=== PATIENT | female | born 1950 | race Caucasian/White ===

== ENCOUNTER → 2017-02-23 | Day surgery (SDC) | payer OTHER ==
[~2017-02-23] MED LIST: ASPI81TA11 PO; BUPIVACAINE/EPINEPHRINE 0.5% PF 10 ML VIAL ONE; FISH1000 PO; GLUC500C56 PO; LACTATED RINGER'S 1000 ML INJ 1,000 ML ONE; LIDOCAINE 1%/EPINEPHrine 1:100,000 SOLN 30 ML VIAL ONE; ONDANSETRON HCL 4 MG/2 ML VIAL IV PUSH ONE; PROPOFOL 500 MG/50 ML BTL IV ONE; SERT50 PO; SODIUM BICARBONATE 8.4% INJ 50 ML ONE; SODIUM CHLOR 0.9% 250 ML BAG IV ONE; STOOL SOFTNERS PO; TAB-TAB PO; VANCOMYCIN HCL 1000 MG VIAL ONE; ceFAZolin 2 GM PREMIX 50 ML ONE
--- NOTE | 2017-02-23 19:16 | TN ---
cc: VERONICA NGUYEN M.D. DATE OF SURGERY 02/23/2017 PREOPERATIVE DIAGNOSES 1. Status post L4-S1 laminectomy and fusion in [place], [place] October 1999. 2. Bilateral chronic lumbar radiculitis. 3. Lumbar spine degenerative disease, osteoarthritis. 4. Chronic pain syndrome. POSTOPERATIVE DIAGNOSES 1. Status post L4-S1 laminectomy and fusion in [place], [place] October 1999. 2. Bilateral chronic lumbar radiculitis. 3. Lumbar spine degenerative disease, osteoarthritis. 4. Chronic pain syndrome. PROCEDURE Thoracic laminectomy with implantation of spinal cord stimulator electrodes in epidural space; insertion of pulse generator spinal cord stimulator battery; complex programming first hour. SURGEON Vito Nguyen MD SOLAR [employer] TECHNICIAN Sury Garza, PAC SPECIMENS None ESTIMATED BLOOD LOSS Less than 100 mL COMPLICATIONS None. ANESTHESIA Sedation, local. DRAINS None. CONDITION Stable. PLAN OF ACTIVITY As per orders. PROCEDURE DETAILS The patient was brought in the operating room and before having anesthesia the patient positioned herself on the spinal frame which consisted of [place]. The patient was comfortable. She was then given sedation. The thoracic lumbar spine and pelvis was all prepped and draped in usual sterile manner. Localizing x-ray was used to identify the T10 interval. Local anesthesia was used to anesthetize the operative site of the thoracic spine. Midline incision made over the mid to lower thoracic spine. The paraspinous muscle gently removed from the left side of the thoracic spine. Under localizing x-ray confirmation was made of the T10 interspace. Thoracic laminectomy performed under local using the [place] 50 cm 2 x 8 surgical leads. They were placed in the epidural space from T8-T9. The patient was then awakened from her sedation. Intraoperative stimulation confirmed excellent stimulation of the lumbar spine, posterior hip and legs. The patient was then given sedation again. The lead anchors were then secured to the leads and also to the posterior spinous processes using 2-0 Vicryl suture. A separate incision was made in the right posterior flank area which is where the patient wished to have her pulse generator battery inserted. This was initially anesthetized. A small incision made at this area through here. A tunnel was then used to bring the leads into the pulse generator pocket. It was assembled onto the pulse generator. The patient had complex programming. The patient was found to have excellent anesthesia. The details are in the operative chart. Each of wounds irrigated with copious amounts of saline, each wound were dried. They were closed with 0 Vicryl, 2-0 Vicryl. Skin was approximated with running subcuticular 3-0 Vicryl suture. Dermabond placed over the skin incision. Sterile dressings were applied. The patient tolerated the procedure well and arrived in the recovery room in stable and satisfactory condition. ADDENDUM X-ray report This a separate for the body of the operative report. The x-ray of the thoracic spine two views AP and lateral, status post thoracic laminectomy for implantation of spinal cord stimulator in dorsal epidural space T8-T9. Thoracic spine degenerative disk disease, osteoarthritis. MD MISAEL Avila/KK /5:20 PM /8:22 AM MTDD
== END | disposition home or self-care (01) ==
LOC: ESDC 13:22
PROVIDERS: ATTEND Orthopaedic Surgery Orthopaedic Surgery of the Spine
DX: M96.1 Postlaminectomy syndrome, not elsewhere classified (principal); M51.34 Other intervertebral disc degeneration, thoracic region; M51.16 Intervertebral disc disorders with radiculopathy, lumbar region; G89.4 Chronic pain syndrome
CPT/HCPCS: 00300; 00620; 63655; 63685; 72070; 76000; C1767; C1778; J0690; J2405; J3010; J3370; J7050; J7120